=== PATIENT | female | born 1975 | race Caucasian/White ===

== ENCOUNTER 2017-01-04 09:48 | Emergency (ER) | payer MEDICAID ==
[~2017-01-04] VITALS: Ht 167.6 cm; Wt 87.0 kg
[2017-01-04 09:51] VITALS: Ht 167.6 cm; Wt 87.0 kg
--- NOTE | 2017-01-04 12:11 | ERD ---
ER Documentation Chief Complaint Date/Time DATE: 01/04/17 TIME: 12:09 Chief Complaint 8/10 CP x 1 day HPI Patient is a 41-year-old female who presents with gradual onset, constant, moderate, dull, focal left upper chest pain for 16 hours. She denies shortness of breath, cough, fever. She denies back pain. She denies radiation of pain. She denies trauma. ROS All systems reviewed and are negative except as per history of present illness. Medications Home Meds Active Scripts Ibuprofen* (Motrin*) 400 Mg Tab, 400 MG PO Q6 Y for PAIN, #24 TAB Prov:TEJINDER JOHNSON MD 01/04/17 Allergies Allergies: Coded Allergies: No Known Allergy (Unverified , 01/04/17) PMhx/Soc Past medical history: None Past surgical history: None Social history: Denies tobacco, alcohol or illicit drugs Hx Alcohol Use: No Hx Substance Use: No Hx Tobacco Use: No FmHx Family History: No coronary disease, No diabetes Physical Exam Vitals Vital Signs Date Time Temp Pulse Resp B/P Pulse Ox O2 Delivery O2 Flow Rate FiO2 01/04/17 13:46 98.8 48 16 138/95 100 Room Air 01/04/17 12:00 98.8 96 16 139/78 99 Room Air 01/04/17 09:51 98.8 74 16 146/95 100 Physical Exam Const: Alert, no acute distress Head: Atraumatic Eyes: Normal Conjunctiva, no pallor, no icterus ENT: Normal External Ears, Nose and Mouth. Mucous membranes moist Neck: Full range of motion. No meningismus. Resp: Clear to auscultation bilaterally, no wheezes, no rales Cardio: Regular rate and rhythm, no murmurs. Left upper chest wall tenderness in focal area at costosternal angle. Palpation at this location reproduces pain 100% Abd: Soft, non tender, non distended. Skin: No petechiae or rashes Back: No midline or flank tenderness Ext: No cyanosis, or edema Neur: Awake and alert, cranial nerves II through XII intact bilaterally, strength and sensation full in 4 extremities. Psych: Normal Mood and Affect Procedures/MDM EKG read by me: Time 0953, rate 73 Rhythm: Normal sinus [place]: Normal Intervals: Normal ST-T waves: no ischemic changes Ectopy: No Q-waves: No Impression: No evidence of ischemia or arrhythmia EKG read by me: Time 1317, rate 53 Rhythm: Sinus bradycardia [place]: Normal Intervals: Normal ST-T waves: T-wave flattening, no ischemic changes Ectopy: No Q-waves: No Impression: Sinus bradycardia with T-wave flattening, no ischemic changes or arrhythmia. DM: Patient is a 41-year-old female who presents with focal left upper chest pain. It is reproducible on exam and the location is at the costosternal angle. Pain is been constant for 16 hours. Two EKGs were nonischemic and chest x-ray is unremarkable. There are no features that are concerning for coronary ischemia. The patient is PERC negative. There are no features concerning for aortic dissection. Symptoms and exam are highly suggestive of chest wall pain. Patient will be discharged with prescription for ibuprofen and is advised to return to the ER for new or worsening symptoms, and to follow- up with her PMD in the next few days if symptoms persist. Departure Diagnosis: Primary Impression: Chest pain Chest pain type: unspecified Qualified Code: R07.9 - Chest pain, unspecified type Condition: TEJINDER Oneal MD Jan 04, 2017 12:11
--- NOTE | 2017-01-04 12:37 | RADRPT ---
PROCEDURE: XR Chest. CLINICAL INDICATION: chest wall pain TECHNIQUE: Single frontal chest x-ray. COMPARISON: 05/16/2014 FINDINGS: The lungs are clear of acute infiltrates, edema, effusions, or masses.. The cardiomediastinal silho uette is unremarkable. The osseous structures are intact. IMPRESSION: No acute cardiopulmonary disease. RPTAT: GG .Chi Perez MD, Date Time Electronically viewed and signed by .Chi Perez MD, on 01/04/2017 12:37 .L/
[2017-01-04] MEDS ORDERED: IBUP400T22 PO (13:31)
[2017-01-04 13:46] VITALS: BP 138/95; PULSE 48; RESP 16; TEMP 98.8
== END 2017-01-04 13:49 | disposition home or self-care (01) ==
LOC: E/R 09:48
DX: R07.9 Chest pain, unspecified (principal)
CPT/HCPCS: 71010; 93005; Z7502